=== PATIENT | male | born 1970 | race Caucasian/White ===

== ENCOUNTER 2017-08-30 23:33 | Emergency (ER) | payer BC ==
[~2017-08-30] VITALS: Ht 182.8 cm; Wt 113.4 kg
[~2017-08-30 23:33] MED LIST: ASPIRIN325 M2 PO; MINITRAN0.1 MG/HR TD; NICOTINE T21 MG/24 H T
[2017-08-31] MEDS ORDERED: NORCO 5-325 TA1 EACH PO (00:15)
[2017-08-31] MEDS ORDERED: AMOXICILLIN500 M2 PO (00:15)
== END 2017-08-31 00:19 | disposition home or self-care (01) ==
LOC: ED 23:33
DX: K04.7 Periapical abscess without sinus (principal); F17.200 Nicotine dependence, unspecified, uncomplicated; F10.10 Alcohol abuse, uncomplicated; Z79.899 Other long term (current) drug therapy

== ENCOUNTER → 2025-09-14 | Outpatient (CLI) | payer BC ==
[~2025-09-14] MED LIST changes: +AMOXICILLIN500 M2 PO; +NORCO 5-325 TA1 EACH PO
== END | disposition home or self-care (01) ==
LOC: RAD 16:10
PROVIDERS: ATTEND Family Medicine
DX: M19.042 Primary osteoarthritis, left hand (principal); M19.041 Primary osteoarthritis, right hand; M25.842 Other specified joint disorders, left hand; M25.841 Other specified joint disorders, right hand; M79.641 Pain in right hand